=== PATIENT | male | born 1955 | race Caucasian/White ===

== ENCOUNTER 2017-07-04 12:44 | Emergency (ER) | payer OTHER ==
[~2017-07-04] VITALS: Ht 172.7 cm; Wt 92.5 kg
[~2017-07-04 12:44] MED LIST: ALPHAGAN P100 DROP/5 BOTH EYES; AZELASTINE137 MCG/0. BOTH NARES; CENTRUM SILVER1 EAC3 PO; DOCUSATE SODIU100 MG PO; ENDOCET 5-3251 EACH PO; FISH OIL300 MG PO; LEXAPRO10 MG PO; LO-DOSE ASPIRIN81 M1 PO; NALTREXONE HCL50 MG PO; Ocean Nasal 0.65% BOTH NARES; PROTONIX40 MG PO; XARELTO15 MG PO; ZESTRIL20 MG PO
[2017-07-04 12:55] VITALS: BP 130/87
== END 2017-07-04 15:12 | disposition home or self-care (01) ==
LOC: EME 12:44
PROC: 0HQFXZZ Repair Right Hand Skin, External Approach (ICD-10-PCS; principal; 2017-07-04)
PROC: 3E0234Z Introduction of Serum, Toxoid and Vaccine into Muscle, Percutaneous Approach (ICD-10-PCS; principal; 2017-07-04)
DX: S61.210A Laceration without foreign body of right index finger without damage to nail, initial encounter (principal); S61.212A Laceration without foreign body of right middle finger without damage to nail, initial encounter; W26.8XXA Contact with other sharp object(s), not elsewhere classified, initial encounter; Z23 Encounter for immunization; I10 Essential (primary) hypertension; Z86.711 Personal history of pulmonary embolism; Z79.01 Long term (current) use of anticoagulants
CPT/HCPCS: 99281; 99284